=== PATIENT | male | born 1980 | race Asian ===

== ENCOUNTER 2022-02-08 18:58 | Emergency (ER) | payer OTHER ==
[~2022-02-08] VITALS: Ht 172.7 cm; Wt 72.0 kg
[2022-02-08 19:07] VITALS: TEMP 98.7
[2022-02-08 19:38] LABS: BASO % 0.2 % (0.0-2.0); EOS % 0.2 % (0.0-4.0); GRAN # 10.9 K/mm3 (1.4-6.5); GRAN % 87.3 % (42.2-75.2); HEMATOCRIT 42.1 % (42.0-52.0); HEMOGLOBIN 13.9 g/dl (13.5-18.0); LYMPH # 1.1 K/mm3 (1.2-3.4); LYMPH % 8.5 % (20.0-51.0); MEAN CELL VOLUME 84 fl (80.0-100.0); MEAN CORPUSCULAR HEMOGLOBIN 28 pg (27-31); MEAN CORPUSCULAR HGB CONC 33 g/dl (33.0-37.0); MEAN PLATELET VOLUME 9.5 fl (7.4-10.4); MONO # 0.4 K/mm3 (0.1-0.6); MONO % 3.4 % (1.7-9.3); PLATELET COUNT 249 K/mm3 (130-400); RED BLOOD COUNT 5.04 M/mm3 (4.20-5.60); REDCELL DISTRIBUTION WIDTH-CV 13.9 % (11.5-14.5)
[2022-02-08 19:59] LABS: ALANINE AMINOTRANSFERASE 18 U/L (0-55); ALBUMIN 4.2 gm/dL (3.5-5.0); ALKALINE PHOSPHATASE 78 U/L (40-150); ANION GAP 11 mmol/L (7-16); AST,SGOT 16 U/L (5-34); BLOOD UREA NITROGEN 11 mg/dL (9-21); CALCIUM 9.7 mg/dL (8.4-10.2); CARBON DIOXIDE 23 mmol/L (22-29); CHLORIDE 103 mmol/L (98-107); CREATININE, serum 0.98 mg/dL (0.72-1.25); GLUCOSE 155 mg/dL (70-99); POTASSIUM 3.9 mmol/L (3.5-4.5); SODIUM 137 mmol/L (136-145); TOTAL PROTEIN 7.7 gm/dL (6.2-8.1)
[2022-02-08 20:08] LABS: TROPONIN-I < 0.010 ng/mL (0.00-0.033)
[2022-02-08] MEDS ORDERED: ANTIVERT 25MG25 MG PO (20:41)
[2022-02-08] MEDS ORDERED: ZOFRAN ODT4 MG PO (20:41)
[2022-02-08 21:00] VITALS: BP 120/81; PULSE 80
== END 2022-02-08 21:10 | disposition home or self-care (01) ==
LOC: COL.ER 18:58
PROVIDERS: Nurse Practitioner Primary Care
DX: H81.10 Benign paroxysmal vertigo, unspecified ear (principal); Z20.822 Contact with and (suspected) exposure to COVID-19
CPT/HCPCS: J2405; J7030